=== PATIENT | male | born 1995 | race American Indian/Alaskan Native ===

== ENCOUNTER 2017-07-15 20:03 | Emergency (ER) | payer MEDICAID ==
[2017-07-15 21:27] VITALS: RESP 18; O2SAT 100
[2017-07-15] MEDS ORDERED: Sodium Chloride 0.9% 500 ML IV ONE (22:16)
--- NOTE | 2017-07-15 22:43 | C.PDOC ---
History Of Present Illness 21 year old male presents to the ED for evaluation of palpitations, hand tremors and lightheadedness beginning earlier tonight. Patient denies chest pain , headache, or shortness of breath prior to arrival. He states that he felt like blood pressure was high. No other acute complaints. Time Seen by Provider: 07/15/17 21:56 Chief Complaint (Nursing): Medical Clearance History Per: Patient History/Exam Limitations: no limitations Onset/Duration Of Symptoms: Mins Current Symptoms Are (Timing): Still Present Severity: Mild Recent travel outside of the [place]: No Past Medical History Reviewed: Historical Data, Nursing Documentation, Vital Signs Vital Signs: Last Vital Signs Temp Pulse 122 H 07/15/17 21:27 Resp 18 07/15/17 21:27 BP 137/80 07/15/17 21:27 Pulse Ox 100 07/15/17 22:50 Family History: States: Unknown Family Hx - Social History Hx Alcohol Use: No Hx Substance Use: No Review Of Systems Constitutional: Negative for: Fever, Chills ENT: Negative for: Ear Pain, Throat Pain Cardiovascular: Positive for: Palpitations, Light Headedness, Other (hand tremors ). Negative for: Chest Pain Respiratory: Negative for: Shortness of Breath Gastrointestinal: Negative for: Nausea, Vomiting, Abdominal Pain, Diarrhea Genitourinary: Negative for: Dysuria Skin: Negative for: Rash Neurological: Negative for: Headache Physical Exam - Physical Exam Appears: Well, Non-toxic, No Acute Distress Skin: Normal Color, Warm, Dry Head: Atraumatic, Normacephalic Eye(s): bilateral: Normal Inspection, PERRL, EOMI Oral Mucosa: Moist Throat: Normal Neck: Normal ROM, Supple Cardiovascular: Rhythm Regular (Rate tachycardic ) Respiratory: Normal Breath Sounds, No Rales, No Rhonchi, No Wheezing Gastrointestinal/Abdominal: Soft, No Tenderness Back: Normal Inspection Extremity: Normal ROM, No Deformity Neurological/Psych: Oriented x3, Normal Speech ED Course And Treatment - Laboratory Results Result Diagrams: 07/15/17 23:02 07/15/17 23:02 O2 Sat by Pulse Oximetry: 100 Pulse Ox Interpretation: Normal Progress Note: Will order IV hydration, basic labs, and reassess. Pt remains asymptomatic with stable vitals. Labs reviewed d/w pt. Pt understands and agrees with plan Reevaluation Time: 00:45 Reassessment Condition: Improved Disposition Counseled Patient/Family Regarding: Diagnosis, Need For Followup, Rx Given - Disposition Referrals: [facility] [Outside] Disposition: HOME/ ROUTINE Disposition Time: 00:47 Condition: STABLE Additional Instructions: Please follow up in clinic Return to ER if worse Instructions: Palpitations (DC) Forms: [employer] (Latvian) Print Language: LUXEMBOURGISH - Clinical Impression Clinical Impression: Palpitations - Scribe Statement The provider has reviewed the documentation as recorded by the Scribe (Nick Pena) Provider Attestation All medical record entries made by the Scribe were at my direction and personally dictated by me. I have reviewed the chart and agree that the record accurately reflects my personal performance of the history, physical exam, medical decision making, and the department course for this patient. I have also personally directed, reviewed, and agree with the discharge instructions and disposition.
[2017-07-15 23:06] LABS: BASO # 0.1 K/uL (0.0-0.2); EOS % 0.4 % (0.0-4.0); HEMOGLOBIN 15.7 g/dL (12.0-18.0); LYMPH # 1.9 K/uL (1.0-4.3); MEAN CELL VOLUME 87.2 fL (80.0-94.0); MEAN CORPUSCULAR HEMOGLOBIN 29.8 pg (27.0-31.0); MEAN CORPUSCULAR HGB CONC 34.2 g/dL (33.0-37.0); MEAN PLATELET VOLUME 8.8 fL (7.2-11.7); MONO # 0.7 K/uL (0.0-0.8); MONO % 10.5 % (0.0-10.0); NEUT # 3.7 K/uL (1.8-7.0); NEUT % 58.1 % (50.0-75.0); NRBC % 0.2 % (0.0-2.0); RBC 5.27 Mil/uL (4.40-5.90); RED CELL DISTRIBUTION WIDTH 12.5 % (11.5-14.5); WHITE BLOOD COUNT 6.3 K/uL (4.8-10.8)
[2017-07-15 23:23] LABS: ALBUMIN 4.6 g/dL (3.5-5.0); BLOOD UREA NITROGEN 6 mg/dL (9-20); CALCIUM 9.3 mg/dl (8.6-10.4); GFR AFRICAN-AMERICAN > 60; GFR NON-AFRICAN AMERICAN > 60
[2017-07-15 23:24] LABS: ALB/GLOB RATIO 1.1 (1.0-2.1); ALT/SGPT 32 U/L (21-72); AST/SGOT 29 U/L (17-59)
[2017-07-15] MEDS ORDERED: Tobramycin 0.3% OPH OINT ONE (23:24)
[2017-07-16] MEDS ORDERED: Potassium Chloride 20 mEq/15 ml LIQ UD PO STA (00:03)
[2017-07-16] MEDS ORDERED: Potassium Chloride 20 mEq ER Tab PO ONE (00:36)
[2017-07-16 01:37] VITALS: BP 124/71; PULSE 78; TEMP 98.4
== END 2017-07-16 01:05 | disposition home or self-care (01) ==
LOC: C.ER 20:03
DX: R00.2 Palpitations (principal); E87.6 Hypokalemia
CPT/HCPCS: 80053; 84443; 85025; 99283; J7040

== ENCOUNTER 2017-10-16 03:10 | Emergency (ER) | payer MEDICAID ==
[2017-10-16 03:22] VITALS: RESP 20
--- NOTE | 2017-10-16 03:24 | C.PDOC ---
History Of Present Illness 22 year old male presents to the ED c/o dysuria and hematuria that started today. Patient reports he felt like something was stuck in the glands of his penis. Patient was trying to go and urinate at first, then managed to urinate when she noticed something came out and some bloody urine. Patient denies fever , chills, nausea, vomit, diarrhea, abdominal pain, back pain. Time Seen by Provider: 10/16/17 03:24 Chief Complaint (Nursing): Male Genitourinary History Per: Patient History/Exam Limitations: no limitations Onset/Duration Of Symptoms: Hrs Current Symptoms Are (Timing): Still Present Quality Of Discomfort: "Pain" Associated Symptoms: Urinary Symptoms Alleviating Factors: None Recent travel outside of the [place]: No Additional History Per: Patient Past Medical History Reviewed: Historical Data, Nursing Documentation, Vital Signs Vital Signs: Last Vital Signs Temp 98.7 F 10/16/17 03:18 Pulse 90 10/16/17 03:18 Resp 20 10/16/17 03:18 BP 158/93 H 10/16/17 03:18 Pulse Ox 98 10/16/17 03:42 - Medical History PMH: No Chronic Diseases Surgical History: No Surg Hx Family History: States: Unknown Family Hx - Social History Hx Alcohol Use: No Hx Substance Use: No - Immunization History Hx Tetanus Toxoid Vaccination: No Hx Influenza Vaccination: No Hx Pneumococcal Vaccination: No Review Of Systems Constitutional: Negative for: Fever, Chills Cardiovascular: Negative for: Chest Pain Respiratory: Negative for: Cough, Shortness of Breath Gastrointestinal: Negative for: Nausea, Vomiting, Abdominal Pain Genitourinary: Positive for: Dysuria, Hematuria Skin: Negative for: Rash Neurological: Negative for: Weakness, Numbness Physical Exam - Physical Exam Appears: Non-toxic, No Acute Distress Skin: Warm, Dry Head: Normacephalic Eye(s): bilateral: Normal Inspection Oral Mucosa: Moist Neck: Supple Chest: Symmetrical Cardiovascular: Rhythm Regular Respiratory: No Rales, No Rhonchi, No Wheezing Gastrointestinal/Abdominal: Soft, No Tenderness, No Guarding, No Rebound Male Genital: No Testicular Tenderness, No Testicular Swelling, No Inguinal Tenderness Extremity: Normal ROM Extremity: Bilateral: Atraumatic, Normal Color And Temperature Neurological/Psych: Oriented x3, Normal Speech, Normal Cognition Gait: Steady ED Course And Treatment - Laboratory Results Result Diagrams: 10/16/17 03:37 10/16/17 03:37 O2 Sat by Pulse Oximetry: 98 (ON RA) Pulse Ox Interpretation: Normal Progress Note: Plan: - CT abd/pelvis. - Labs. - IV fluids. - UA Reevaluation Time: : Reassessment Condition: Improved Disposition Counseled Patient/Family Regarding: Studies Performed, Diagnosis, Need For Followup - Disposition Referrals: Tay Olivo MD [Staff Provider] - Disposition: HOME/ ROUTINE Disposition Time: : Condition: FAIR Prescriptions: Ibuprofen [Motrin Tab] 800 mg PO TID PRN #15 tab PRN Reason: Pain, Moderate (4-7) Tamsulosin [Flomax] 0.4 mg PO DAILY #15 cap Instructions: Renal Colic (DC), Kidney Stones (DC), Blood in the Urine ( Hematuria), Adult (DC) Forms: [employer] (Beninese) - Clinical Impression Clinical Impression: Kidney stone, Renal colic, Hematuria - Scribe Statement The provider has reviewed the documentation as recorded by the Scribe Efrain Schwab All medical record entries made by the Scribe were at my direction and personally dictated by me. I have reviewed the chart and agree that the record accurately reflects my personal performance of the history, physical exam, medical decision making, and the department course for this patient. I have also personally directed, reviewed, and agree with the discharge instructions and disposition.
[2017-10-16] MEDS ORDERED: Sodium Chloride 0.9% 1,000 ML IV ONE (03:27)
[2017-10-16] MEDS ORDERED: Sodium Chloride 0.9% 1,000 ML ONE (03:32)
[2017-10-16 03:42] LABS: BASO # 0.1 K/uL (0.0-0.2); BASO % 1.1 % (0.0-2.0); EOS # 0.1 K/uL (0.0-0.7); EOS % 1.1 % (0.0-4.0); LYMPH # 1.7 K/uL (1.0-4.3); LYMPH % 30.8 % (20.0-40.0); MEAN CELL VOLUME 87.6 fL (80.0-94.0); MEAN CORPUSCULAR HEMOGLOBIN 29.2 pg (27.0-31.0); MEAN CORPUSCULAR HGB CONC 33.4 g/dL (33.0-37.0); MEAN PLATELET VOLUME 9.3 fL (7.2-11.7); MONO # 0.5 K/uL (0.0-0.8); MONO % 9.8 % (0.0-10.0); NEUT # 3.1 K/uL (1.8-7.0); NEUT % 57.2 % (50.0-75.0); NRBC % 0.1 % (0.0-2.0); RBC 5.12 Mil/uL (4.40-5.90); RED CELL DISTRIBUTION WIDTH 12.3 % (11.5-14.5); WHITE BLOOD COUNT 5.4 K/uL (4.8-10.8)
[2017-10-16 03:44] LABS: URINE BACTERIA OCC (<OCC); URINE BILIRUBIN NEGATIVE (NEGATIVE); URINE BLOOD 3+ (NEGATIVE); URINE CLARITY Clear (Clear); URINE GLUCOSE (UA) NORMAL (Normal); URINE LEUKOCYTE ESTERASE NEG Leu/uL (Negative); URINE PROTEIN NEGATIVE (NEGATIVE); URINE UROBILINOGEN NORMAL mg/dL (0.2-1.0)
[2017-10-16 03:46] LABS: URINE COLOR LIGHT RED (YELLOW)
[2017-10-16 03:51] LABS: INR 1.3
[2017-10-16 03:53] LABS: ALB/GLOB RATIO 1.3 (1.0-2.1); ALBUMIN 5.2 g/dL (3.5-5.0); ALT/SGPT 32 U/L (21-72); AST/SGOT 31 U/L (17-59); BLOOD UREA NITROGEN 11 mg/dL (9-20); CALCIUM 9.2 mg/dl (8.6-10.4); GFR AFRICAN-AMERICAN > 60; GFR NON-AFRICAN AMERICAN > 60; LIPASE 144 U/L (23-300)
--- NOTE | 2017-10-16 05:13 | CT ---
EXAM: CT Abdomen and Pelvis Without Intravenous Contrast CLINICAL HISTORY: 22 years old, male; Pain and signs and symptoms; Other: Hematuria; Abdominal pain; Additional info: , Hematuria TECHNIQUE: Axial computed tomography images of the abdomen and pelvis without intravenous contrast. All CT scans at this facility use one or more dose reduction techniques, viz.: automated exposure control; ma/kV adjustment per patient size (including targeted exams where dose is matched to indication; i.e. head); or iterative reconstruction technique. Coronal and sagittal reformatted images were created and reviewed. COMPARISON: No relevant prior studies available. FINDINGS: Limitations: Lack of intravenous contrast. Motion artifact - mild. Paucity of intra-abdominal fat. Lung bases: No acute findings. ABDOMEN: Liver: Unremarkable. Gallbladder and bile ducts: No calcified stones. No ductal dilation. Pancreas: Unremarkable. No ductal dilation. Spleen: No splenomegaly. Adrenals: No mass. Kidneys and ureters: No renal calculi. No hydronephrosis. Suboptimal visualization of ureters. Stomach and bowel: No definite mural thickening. No obstruction. PELVIS: Appendix: No findings to suggest acute appendicitis. Bladder: Unremarkable. No stones. Reproductive: Unremarkable as visualized. ABDOMEN and PELVIS: Intraperitoneal space: No significant fluid collection. No free air. Bones/joints: No acute fracture. Soft tissues: Tiny umbilical hernia containing fat. Vasculature: Several rounded calcifications within pelvis, most likely phleboliths. No aneurysm. Lymph nodes: No pathologically enlarged lymph nodes. IMPRESSION: 1. Probable phleboliths within pelvis. Nonobstructing distal ureteral calculus not entirely excluded but felt less likely. Consider contrast CT if clinically warranted 2. Incidental/non-acute findings are described above.
[2017-10-16 05:28] VITALS: BP 140/70; PULSE 89; TEMP 98.1; O2SAT 99
== END 2017-10-16 05:28 | disposition home or self-care (01) ==
LOC: C.ER 03:10
DX: N20.0 Calculus of kidney (principal); R31.9 Hematuria, unspecified
CPT/HCPCS: 74176; 80053; 81001; 83690; 85025; 85610; 85730; 96360; 99285; J7040

== ENCOUNTER 2017-11-22 14:31 | Emergency (ER) | payer MEDICAID ==
[2017-11-22 14:43] VITALS: RESP 18
[2017-11-22] MEDS ORDERED: Alum-Mag Hydrox-Simethicone Susp (30 mL) PO STA (15:04)
--- NOTE | 2017-11-22 15:09 | C.PDOC ---
History Of Present Illness 22 y/o male with PMHx of GERD presents to the ED complaining of vague left chest discomfort and worsening reflux symptoms last night. States he has established follow up with a manager engagement, and they have ruled out H. pylori and occult stool blood. Patient notes he has not been started on any medication for the reflux. Patient also reports PMHx of HTN, for which he takes Norvasc 5 mg every evening (unknown why he takes it at night). Currently he has no discomfort. Also denies SOB, palpitations, wheezing, cough, or fever. Time Seen by Provider: 11/22/17 14:56 Chief Complaint (Nursing): Chest Pain History Per: Patient History/Exam Limitations: no limitations Onset/Duration Of Symptoms: Hrs Current Symptoms Are (Timing): Better Quality: Burning Past Medical History Reviewed: Historical Data, Nursing Documentation, Vital Signs Vital Signs: Last Vital Signs Temp 99.2 F 11/22/17 15:36 Pulse 83 11/22/17 15:36 Resp 18 11/22/17 15:36 BP 145/77 11/22/17 15:36 Pulse Ox 98 11/22/17 15:36 - Medical History PMH: GERD, HTN Family History: States: Unknown Family Hx - Social History Hx Alcohol Use: No Hx Substance Use: No - Immunization History Hx Tetanus Toxoid Vaccination: No Hx Influenza Vaccination: No Hx Pneumococcal Vaccination: No Review Of Systems Except As Marked, All Systems Reviewed And Found Negative. Constitutional: Negative for: Fever, Chills, Weakness Cardiovascular: Positive for: Chest Pain (now resolved). Negative for: Palpitations, Light Headedness Respiratory: Negative for: Cough, Shortness of Breath, Wheezing Gastrointestinal: Positive for: Nausea, Vomiting Neurological: Negative for: Dizziness Physical Exam - Physical Exam Appears: Well, Non-toxic, No Acute Distress, Other (Thin athletic male) Skin: Normal Color, Warm, Dry Head: Atraumatic, Normacephalic Eye(s): bilateral: Normal Inspection, PERRL, EOMI Oral Mucosa: Moist Neck: Normal ROM, Supple Chest: Symmetrical, No Deformity, No Tenderness (and no digitally reproducible pain) Cardiovascular: Rhythm Regular, No Murmur Respiratory: Normal Breath Sounds, No Accessory Muscle Use, No Rales, No Rhonchi , No Wheezing Gastrointestinal/Abdominal: Soft, No Tenderness, No Guarding, No Rebound Extremity: Bilateral: Atraumatic, Normal Color And Temperature, Normal ROM Pulses: Left Radial: Normal, Right Radial: Normal Neurological/Psych: Oriented x3, Normal Speech, Normal Cranial Nerves ED Course And Treatment O2 Sat by Pulse Oximetry: 100 (RA) Pulse Ox Interpretation: Normal Medical Decision Making Medical Decision Making: HTN: rare for a 22 y/o to be taking HTN meds, but pt is thin and athletic. taking his Norvasc @ night (in error) instructed to take within 15 mins of waking Requires further w/u to r/o renal artery stenosis and/or pheochromycytoma w PMD GERD: Severe symptoms last night probably causing today's vague L chest discomfort normal EKG Pepcid/maalox educated. Disposition Doctor Will See Patient In The: Office Counseled Patient/Family Regarding: Studies Performed, Diagnosis - Disposition Referrals: Tay Olivo MD [Staff Provider] - Disposition: HOME/ ROUTINE Disposition Time: 15:09 Condition: GOOD Additional Instructions: Hipertension: Kyara gomes Norvasc 5 mg EN LA MANANA EN LA PROXIMA 1/2 HORA QUE DESPIERTAS Consider further evaluation to rule out Pheochromocytoma and Renal Artery Stenosis with your PMD GERD: pepcid 20 mg 2 veces al haydee por 1 mes (9AM y 9PM) el acides es peor en la noche cuando duermes! Maalox 30 cc (Toña cucharada, o' el equivelente) 5 veces al haydee por 3 morales, lluego [place] necessario para la molestia de reflujo acides y molestia del pecho EKG NORMAL hoy Instructions: Acid Reflux (Gastroesophageal Reflux Disease), Adult (DC), High Blood Pressure (DC) Forms: [employer] (Korean) Print Language: MOZAMBICAN - Clinical Impression Clinical Impression: Chest discomfort, GERD (gastroesophageal reflux disease) - Scribe Statement The provider has reviewed the documentation as recorded by the Scribe (Sushila Marroquin) Provider Attestation: All medical record entries made by the Scribe were at my direction and personally dictated by me. I have reviewed the chart and agree that the record accurately reflects my personal performance of the history, physical exam, medical decision making, and the department course for this patient. I have also personally directed, reviewed, and agree with the discharge instructions and disposition.
[2017-11-22] MEDS ORDERED: Alum-Mag Hydrox-Simethicone Susp (30 mL) ONE (15:10)
[2017-11-22 15:37] VITALS: BP 145/77; PULSE 83; TEMP 99.2
[2017-11-22 16:26] VITALS: O2SAT 100
--- NOTE | 2017-11-23 19:52 | CARD ---
APPROVED REPORT EKG Measurement Heart [id number] MD [id number] <Conclusion> Normal sinus rhythm Normal ECG
== END 2017-11-22 15:37 | disposition home or self-care (01) ==
LOC: C.ER 14:31
DX: K21.9 Gastro-esophageal reflux disease without esophagitis (principal); R07.89 Other chest pain

== ENCOUNTER 2017-12-17 06:53 | Day surgery (SDC) | payer MEDICAID ==
[2017-12-17 07:52] VITALS: BMI 22.9
[2017-12-17] MEDS ORDERED: Propofol 10 mg/ml Inj (20 ML) ONE ×3 (09:16→09:40)
[2017-12-17] MEDS ORDERED: Lidocaine 2% MPF (5 ml) Inj ONE ×2 (09:17)
[2017-12-17 10:20] VITALS: TEMP 98
[2017-12-17 10:23] VITALS: O2SAT 100
[2017-12-17 11:19] VITALS: BP 115/67; PULSE 77; RESP 13
== END 2017-12-17 11:15 | disposition home or self-care (01) ==
LOC: C.ENDO 06:53
PROVIDERS: ATTEND Internal Medicine Gastroenterology
DX: K29.50 Unspecified chronic gastritis without bleeding (principal); K57.30 Diverticulosis of large intestine without perforation or abscess without bleeding; K64.1 Second degree hemorrhoids
CPT/HCPCS: 43239; 45378; 88305; 88313; 88342; J2704; J3010

== ENCOUNTER 2017-12-18 02:41 | Emergency (ER) | payer MEDICAID ==
[2017-12-18 02:41] VITALS: BMI 22.9
[2017-12-18 02:48] VITALS: BP 144/79; PULSE 69; RESP 22; TEMP 98.3; O2SAT 98
--- NOTE | 2017-12-18 03:12 | C.PDOC ---
History Of Present Illness 22 year old male presents to the ER after having an episode of RUQ pain tonight. Patient had an outpatient endoscopy and colonoscopy done yesterday. Denies any pain or discomfort at this time. Chief Complaint (Nursing): Abdominal Pain History Per: Patient History/Exam Limitations: no limitations Onset/Duration Of Symptoms: Hrs Current Symptoms Are (Timing): Gone Location Of Pain/Discomfort: RUQ Radiation Of Pain To:: None Quality Of Discomfort: Unable To Describe Associated Symptoms: denies: Fever, Chills, Nausea, Vomiting Exacerbating Factors: None Alleviating Factors: None Recent travel outside of the [place]: No Past Medical History Reviewed: Historical Data, Nursing Documentation, Vital Signs Vital Signs: Last Vital Signs Temp 98.3 F 12/18/17 02:46 Pulse 69 12/18/17 02:46 Resp 22 12/18/17 02:46 BP 144/79 12/18/17 02:46 Pulse Ox 98 12/18/17 03:12 - Medical History PMH: GERD, HTN Family History: States: Unknown Family Hx - Social History Hx Alcohol Use: No Hx Substance Use: No - Immunization History Hx Tetanus Toxoid Vaccination: No Hx Influenza Vaccination: No Hx Pneumococcal Vaccination: No Review Of Systems Constitutional: Negative for: Fever, Chills Cardiovascular: Negative for: Chest Pain, Palpitations Respiratory: Negative for: Cough, Shortness of Breath Gastrointestinal: Positive for: Abdominal Pain. Negative for: Nausea, Vomiting Genitourinary: Negative for: Dysuria, Hematuria Physical Exam - Physical Exam Appears: Non-toxic Skin: Normal Color, Warm, Dry Head: Atraumatic, Normacephalic Eye(s): bilateral: Normal Inspection Oral Mucosa: Moist Neck: Normal, Supple Chest: Symmetrical, No Tenderness Cardiovascular: Rhythm Regular Respiratory: Normal Breath Sounds, No Rales, No Rhonchi, No Wheezing Gastrointestinal/Abdominal: Soft, No Tenderness Back: No CVA Tenderness Neurological/Psych: Oriented x3, Normal Speech ED Course And Treatment O2 Sat by Pulse Oximetry: 98 (Room air) Pulse Ox Interpretation: Normal Disposition Counseled Patient/Family Regarding: Diagnosis - Disposition Referrals: [facility] [Outside] Disposition: HOME/ ROUTINE Disposition Time: 03:11 Condition: STABLE Instructions: Colic (DC) Forms: [employer] (Hebrew) - POA Present On Arrival: None - Clinical Impression Clinical Impression: Normal abdominal exam - Scribe Statement The provider has reviewed the documentation as recorded by the Scribe Jeb Lewis All medical record entries made by the Scribe were at my direction and personally dictated by me. I have reviewed the chart and agree that the record accurately reflects my personal performance of the history, physical exam, medical decision making, and the department course for this patient. I have also personally directed, reviewed, and agree with the discharge instructions and disposition.
== END 2017-12-18 03:19 | disposition home or self-care (01) ==
LOC: C.ER 02:41
DX: R10.9 Unspecified abdominal pain (principal)

== ENCOUNTER 2018-03-08 15:04 | Emergency (ER) | payer MEDICAID ==
[2018-03-08 15:05] VITALS: BMI 22.9
[2018-03-08] MEDS ORDERED: Sodium Chloride 0.9% 1,000 ML IV ONE (15:58)
[2018-03-08] MEDS ORDERED: Sodium Chloride 0.9% 1,000 ML ONE (16:07)
[2018-03-08 16:17] LABS: BASO % 0.9 % (0.0-2.0); EOS % 1.1 % (0.0-4.0); HEMOGLOBIN 15.1 g/dL (12.0-18.0); LYMPH # 1.4 K/uL (1.0-4.3); LYMPH % 31.5 % (20.0-40.0); MEAN CELL VOLUME 87.4 fL (80.0-94.0); MEAN CORPUSCULAR HEMOGLOBIN 28.9 pg (27.0-31.0); MEAN CORPUSCULAR HGB CONC 33.1 g/dL (33.0-37.0); MEAN PLATELET VOLUME 8.3 fL (7.2-11.7); MONO # 0.5 K/uL (0.0-0.8); MONO % 10.1 % (0.0-10.0); NEUT # 2.5 K/uL (1.8-7.0); NEUT % 56.4 % (50.0-75.0); RBC 5.24 Mil/uL (4.40-5.90); WHITE BLOOD COUNT 4.5 K/uL (4.8-10.8)
[2018-03-08 16:37] LABS: INR 1.2; PROTHROMBIN TIME 13.6 SECONDS (9.7-12.2)
[2018-03-08 16:47] LABS: ALB/GLOB RATIO 1.3 (1.0-2.1); ALBUMIN 4.8 g/dL (3.5-5.0); ALT/SGPT 32 U/L (21-72); AST/SGOT 35 U/L (17-59); BLOOD UREA NITROGEN 13 mg/dL (9-20); CALCIUM 9.7 mg/dl (8.6-10.4); GFR NON-AFRICAN AMERICAN > 60
--- NOTE | 2018-03-08 17:03 | RAD ---
Date of service: 03/08/2018 HISTORY: chest pain COMPARISON: No prior. TECHNIQUE: Chest PA and lateral FINDINGS: LUNGS: No active pulmonary disease. PLEURA: No significant pleural effusion identified. No pneumothorax apparent. CARDIOVASCULAR: Normal. OSSEOUS STRUCTURES: No significant abnormalities. VISUALIZED UPPER ABDOMEN: Normal. OTHER FINDINGS: None. IMPRESSION: No active disease.
--- NOTE | 2018-03-08 17:14 | C.PDOC ---
History Of Present Illness 22 year old male, whose PMHx includes Hypertension, presents to the ED for evaluation of chest tightness and dyspnea which gradually developed over the past few days. Patient is unable to recall any factors that exacerbate his symptoms. Pt denies fever, chills, headache, dizziness, visual changes, focal deficits, neck pain, palpitations, diaphoresis, cough, abd. pain, N/V/D, back pain, UTI, denies B/L lower legs pain, no risk factors for PE/DVT. Ambulate to ED for evaluation, not in any apparent distress. Time Seen by Provider: 03/08/18 15:30 Chief Complaint (Nursing): Shortness Of Breath History Per: Patient History/Exam Limitations: no limitations Onset/Duration Of Symptoms: Days, Gradual Initiating Event: denies: Possible Allergic Reaction Quality: Tightness Current Respiratory Medications: See Home Med List Associated Symptoms: denies: Fever, Chills Additional History Per: Patient Past Medical History Reviewed: Historical Data, Nursing Documentation, Vital Signs Vital Signs: Last Vital Signs Temp 99.7 F H 03/08/18 15:15 Pulse 131 H 03/08/18 15:15 Resp 17 03/08/18 15:45 BP 144/81 03/08/18 15:15 Pulse Ox 99 03/08/18 15:45 - Medical History PMH: GERD, HTN Denies: Chronic Kidney Disease Surgical History: No Surg Hx Family History: States: Unknown Family Hx - Social History Hx Alcohol Use: No Hx Substance Use: No - Immunization History Hx Tetanus Toxoid Vaccination: No Hx Influenza Vaccination: No Hx Pneumococcal Vaccination: No Review Of Systems Constitutional: Negative for: Fever Cardiovascular: Positive for: Other (chest tightness ). Negative for: Palpitations Respiratory: Positive for: Other (dyspnea ) Neurological: Negative for: Headache, Dizziness Physical Exam - Physical Exam Appears: Well, Non-toxic, No Acute Distress Skin: Normal Color, Warm, Dry Head: Normacephalic Eye(s): bilateral: PERRL Nose: No Flaring, Discharge (B/L nasal congestion) Oral Mucosa: Moist, No Drooling Tongue: Normal Appearing Lips: Normal Appearing Throat: No Erythema, No Drooling Neck: Trachea Midline, Supple Chest: Symmetrical, No Deformity, No Tenderness Cardiovascular: Rhythm Regular (tachy), No Murmur, No JVD, Other ((-) carotid bruits B/L) Respiratory: No Decreased Breath Sounds, No Accessory Muscle Use, No Rales, No Rhonchi, No Stridor, No Wheezing Gastrointestinal/Abdominal: Soft, No Tenderness, No Distention, No Guarding Back: No CVA Tenderness Extremity: Normal ROM, No Pedal Edema, No Calf Tenderness (B/L), Capillary Refill (less than 2 seconds ), No Swelling Neurological/Psych: Oriented x3, Normal Speech, Normal Cognition, Normal Motor, Normal Sensation, Normal Reflexes ED Course And Treatment - Laboratory Results Result Diagrams: 03/08/18 16:12 03/08/18 16:12 Lab Interpretation: Abnormal ECG: Interpreted By Me, Viewed By Me ECG Rhythm: Sinus Tachycardia ECG Interpretation: Normal Interpretation Of ECG: Sinus tachy@125/min, NAD, no acute T wave or ST-T changes Rate From EC O2 Sat by Pulse Oximetry: 99 (on RA) Pulse Ox Interpretation: Normal - Radiology CXR: Interpreted by Me, Viewed By Me, Read By Radiologist CXR Interpretation: Yes: No Acute Disease Progress Note: Bloodwork, urinalysis, flu swab, CXR, and EKG ordered and re viewed. IV Fluids given. At 17:10, blood work review, high D-DImer noted, CTA PE protocol order. Pt appears comfortable, not in any apparnet distress. Lungs: CTA B/L, BS equal B/L. CVS: (+)S1S2, reg. (-) murmur. Neurologicaly intact. At 18:10, pt reports, "feels much better". Afebrile, hemodynamicaly tsbale. Non-toxic. PulsEOx 99% RA. Neck: Supple, (-) carotid bruits B/L, (-) JVD. ENT: no acute findings. Lungs; CTA B/L, BS equal B/L. CVS: (+)S1S2, reg, (-) murmur. Abd: benign. neuorlogicaly intact. CTA chest discussed with rad , limited study, however no visible intraluminal filling defects within central pulm art to suggest PE, Lungs clear, no consolidation. Blood work, Troponin I - negative. case review and results discussed with ED attending and discharge with outpt f/u recommend at present time. results review and discussed with patient. ref. to F/u with PMD, card in 1-2 days for re-eval. return to Ed if any worsening or new changes. Disposition Counseled Patient/Family Regarding: Studies Performed, Diagnosis, Need For Followup - Disposition Referrals: Tay Olivo MD [Staff Provider] - Disposition: HOME/ ROUTINE Disposition Time: 18:29 Condition: STABLE Additional Instructions: Encourage fluids Afrin nasal spray twice daily for 3 days as need for nasal congestion Follow up with PMD, cardiology in 1-2 days for re-evaluation. return to Ed if any worsening or new changes. Instructions: Shortness of Breath (Dyspnea) Forms: [employer] (Setswana) - Clinical Impression Clinical Impression: Dyspnea - PA / [employer]EN[employer] AGENT / Resident Statement MD/DO has reviewed & agrees with the documentation as recorded. - Scribe Statement The provider has reviewed the documentation as recorded by the Scribe (Nellie Marrero) All medical record entries made by the Scribe were at my direction and personally dictated by me. I have reviewed the chart and agree that the record accurately reflects my personal performance of the history, physical exam, medical decision making, and the department course for this patient. I have also personally directed, reviewed, and agree with the discharge instructions and disposition.
[2018-03-08 17:28] LABS: URINE BILIRUBIN NEGATIVE (NEGATIVE); URINE BLOOD NEGATIVE (NEGATIVE); URINE CLARITY Clear (Clear); URINE COLOR Straw (YELLOW); URINE GLUCOSE (UA) NORMAL (Normal); URINE LEUKOCYTE ESTERASE NEG Leu/uL (Negative); URINE PROTEIN NEGATIVE (NEGATIVE); URINE UROBILINOGEN NORMAL mg/dL (0.2-1.0)
[2018-03-08] MEDS ORDERED: Iodixanol 320 MG/ML 100 ML BOTTLE IV ONE (17:47)
--- NOTE | 2018-03-08 18:34 | CT ---
Date of service: 03/08/2018 CTA chest PE protocol Indication: Shortness of breath Technique: Contiguous axial images were obtained through the chest with intravenous contrast enhancement. Sagittal and coronal reconstructions were generated and reviewed. This CT exam was performed using 1 or more of the following dose reduction techniques: Automated exposure control, adjustment of the MAA and/or kV according to patient size, and/or use of iterative reconstruction technique. IV contrast: 322.19 Radiation dose (DLP): 322.19 MGy-cm. Comparison: Chest x-ray performed 03/08/18 Findings: Visualized portions of the inferior thyroid gland appear unremarkable. The mediastinal and hilar vascular structures appear within normal limits. The heart appears within normal limits of size. Mild nodular hazy soft tissue within the anterior mediastinum, likely residual thymic tissue. There is suboptimal opacification of the pulmonary arteries limiting evaluation for pulmonary embolus. Given this limitation, there are no visible intraluminal filling defects within the central pulmonary arteries to suggest central pulmonary embolism. No atherosclerotic mural plaque or calcifications of the aorta appreciated. No focal consolidation. No pleural effusion. No pneumothorax. No suspicious pulmonary nodules measuring greater than 5 mm. Limited visualized portions of the upper abdomen appear grossly unremarkable. Bilateral gynecomastia. No acute osseous abnormality is detected. Impression: There is suboptimal opacification of the pulmonary arteries limiting evaluation for pulmonary embolus. Given this limitation, there are no visible intraluminal filling defects within the central pulmonary arteries to suggest central pulmonary embolism. Additional findings as above. Findings discussed with ZACH Hardwick on 03/08/18 at 6:26 p.m.
[2018-03-08 18:38] VITALS: O2SAT 99
[2018-03-08 18:58] VITALS: BP 136/77; PULSE 81; RESP 17; TEMP 99.6
--- NOTE | 2018-03-09 20:08 | CARD ---
APPROVED REPORT Date of service: 03/08/2018 EKG Measurement Heart [id number] <Conclusion> Sinus tachycardia Otherwise normal ECG
== END 2018-03-08 19:00 | disposition home or self-care (01) ==
LOC: C.ER 15:04
DX: R06.00 Dyspnea, unspecified (principal); I10 Essential (primary) hypertension
CPT/HCPCS: 71046; 71275; 80053; 81001; 84484; 85025; 85378; 85610; 85730; 87804; 93005; 96360; 99285; J7030; Q9967

== ENCOUNTER 2018-06-23 10:08 | Outpatient (CLI) | payer MEDICAID | END 2018-06-23 10:09 | disposition home or self-care (01) | LOC: C.USIC 10:08 ==

== ENCOUNTER → 2018-08-06 | Outpatient (CLI) | payer MEDICAID | LOC: C.CTH 10:37 | DX: R59.0 Localized enlarged lymph nodes (principal) ==

== ENCOUNTER 2018-08-07 18:46 | Emergency (ER) | payer MEDICAID ==
[2018-08-07 18:56] VITALS: BMI 24.4
[2018-08-07 18:58] VITALS: RESP 18; TEMP 98.9
--- NOTE | 2018-08-07 19:22 | C.PDOC ---
History Of Present Illness 22 year old male presents with anterior chest pain intermittently for the past one month with slight SOB. Patient has Hx of anxiety reaction in the past. She states chest pain last a few minutes, has no chest pain or SOB at this time. Denies dizziness, headache, nausea, or vomiting. Chief Complaint (Nursing): Chest Pain History Per: Patient History/Exam Limitations: no limitations Onset/Duration Of Symptoms: Days, Intermittent Episodes Current Symptoms Are (Timing): Gone Associated Symptoms: Dyspnea Modifying Factors: None Exacerbating Factors: None Alleviating Factors: None Recent travel outside of the [place]: No Past Medical History Reviewed: Historical Data, Nursing Documentation, Vital Signs Vital Signs: Last Vital Signs Temp 98.9 F 08/07/18 18:56 Pulse 90 08/07/18 18:56 Resp 18 08/07/18 18:56 BP 127/83 08/07/18 18:56 Pulse Ox 98 08/07/18 18:56 - Medical History PMH: GERD, HTN Denies: Chronic Kidney Disease Family History: States: No Known Family Hx - Social History Hx Alcohol Use: No Hx Substance Use: No - Immunization History Hx Tetanus Toxoid Vaccination: No Hx Influenza Vaccination: No Hx Pneumococcal Vaccination: No Review Of Systems Constitutional: Negative for: Fever, Chills Cardiovascular: Positive for: Chest Pain Respiratory: Positive for: Shortness of Breath. Negative for: Cough Gastrointestinal: Negative for: Nausea, Vomiting Neurological: Negative for: Weakness, Numbness, Headache, Dizziness Physical Exam - Physical Exam Appears: Non-toxic Skin: Normal Color, Warm, Dry Head: Atraumatic, Normacephalic Eye(s): bilateral: Normal Inspection Oral Mucosa: Moist Neck: Normal, Supple Chest: Symmetrical, No Tenderness Cardiovascular: Rhythm Regular Respiratory: Normal Breath Sounds, No Rales, No Rhonchi, No Wheezing Gastrointestinal/Abdominal: Soft, No Tenderness Neurological/Psych: Oriented x3, Normal Speech ED Course And Treatment - Laboratory Results Result Diagrams: 08/07/18 20:03 08/07/18 20:43 ECG: Interpreted By Me, Viewed By Me ECG Rhythm: Sinus Rhythm ECG Interpretation: Normal, No Acute Changes Interpretation Of ECG: NSR, normal tracings. Rate From EC O2 Sat by Pulse Oximetry: 98 (Room air) Pulse Ox Interpretation: Normal - Radiology CXR: Interpreted by Me, Viewed By Me CXR Interpretation: Yes: No Acute Disease, Other (normal chest film) Progress Note: EKG, blood work, and CXR ordered. Xanax administered. Disposition Counseled Patient/Family Regarding: Diagnosis - Disposition Referrals: Non [facility] Provider, [Primary Care Provider] - [facility] [Outside] Disposition: HOME/ ROUTINE Disposition Time: 02:22 Condition: STABLE Instructions: Generalized Anxiety Disorder (DC) Forms: [employer] (Citizen [place]) - POA Present On Arrival: None - Clinical Impression Clinical Impression: Anxiety, Non-cardiac chest pain - Scribe Statement The provider has reviewed the documentation as recorded by the Scribe Jeb Lewis All medical record entries made by the Scribe were at my direction and personally dictated by me. I have reviewed the chart and agree that the record accurately reflects my personal performance of the history, physical exam, medical decision making, and the department course for this patient. I have also personally directed, reviewed, and agree with the discharge instructions and disposition.
[2018-08-07 19:58] LABS: BASO # 0.1 K/uL (0.0-0.2); BASO % 1.7 % (0.0-2.0); EOS % 1.1 % (0.0-4.0); LYMPH # 1.3 K/uL (1.0-4.3); LYMPH % 32.5 % (20.0-40.0); MEAN CELL VOLUME 89.6 fL (80.0-94.0); MEAN CORPUSCULAR HEMOGLOBIN 29.2 pg (27.0-31.0); MEAN CORPUSCULAR HGB CONC 32.5 g/dL (33.0-37.0); MEAN PLATELET VOLUME 8.1 fL (7.2-11.7); MONO # 0.4 K/uL (0.0-0.8); MONO % 10.6 % (0.0-10.0); NEUT # 2.1 K/uL (1.8-7.0); NEUT % 54.1 % (50.0-75.0); NRBC % 0.1 % (0.0-2.0); RBC 5.13 Mil/uL (4.40-5.90); RED CELL DISTRIBUTION WIDTH 11.9 % (11.5-14.5)
[2018-08-07 20:52] LABS: ALB/GLOB RATIO 1.4 (1.0-2.1); ALBUMIN 4.4 g/dL (3.5-5.0); ALT/SGPT 30 U/L (21-72); AST/SGOT 35 U/L (17-59); BLOOD UREA NITROGEN 12 mg/dL (9-20); CALCIUM 9.4 mg/dl (8.6-10.4); GFR NON-AFRICAN AMERICAN > 60
--- NOTE | 2018-08-07 21:21 | RAD ---
Chest x-ray two views HISTORY: Chest pain. COMPARISON: 03/08/2018 Findings: No focal infiltrate or effusion. Heart size within normal limits. Impression: No focal infiltrate or effusion.
[2018-08-07] MEDS ORDERED: Iodixanol 320 MG/ML 100 ML BOTTLE IV ONE (22:08)
[2018-08-08 02:46] VITALS: BP 131/81; PULSE 75; O2SAT 99
--- NOTE | 2018-08-08 08:02 | CT ---
CT chest pulmonary angiogram HISTORY: Elevated D-dimer. Cardiac murmur. COMPARISON: None available. TECHNIQUE: CT chest pulmonary angiogram was performed utilizing multiple contiguous axial images with the use of intravenous contrast. Subsequently, sagittal and coronal reformatted images as well as sagittal and coronal MIPS reformatted images were obtained. This CT exam was performed using one or more of the following dose reduction techniques: Automated exposure control, adjustment of the mA and/or kV according to patient size, and/or use of iterative reconstruction technique. Findings: No evidence of acute central pulmonary embolism. Suboptimal opacification limits evaluation of smaller branches. No evidence of acute aortic dissection. Trachea thru central airways are patent. Right lung: Grossly preserved. Left lung: Grossly preserved. Trachea thru central airways are patent. No significant axillary adenopathy. Heterogeneity of the thyroid. No significant mediastinal adenopathy. No pleural or pericardial effusion. Osseous structures are grossly preserved. Impression: No evidence of acute central pulmonary embolism. Suboptimal opacification limits evaluation of smaller branches. A preliminary report was generated at 2:56 a.m. on 08/08/[address] Ko Salgado from [employer].
--- NOTE | 2018-08-09 17:17 | CARD ---
APPROVED REPORT Date of service: 08/07/2018 EKG Measurement Heart [id number] [place] [id number] <Conclusion> Normal sinus rhythm Normal ECG
== END 2018-08-08 02:47 | disposition home or self-care (01) ==
LOC: C.ER 18:46 → SUPCPDRO 18:46 → C.ER 08-08 02:47
DX: F41.9 Anxiety disorder, unspecified (principal); R07.89 Other chest pain
CPT/HCPCS: 71046; 71275; 80053; 84484; 85025; 85378; 93005; 99285; Q9967